=== PATIENT | female | born 1990 | race Caucasian/White ===

== ENCOUNTER 2021-08-13 09:34 | Emergency (ER) | payer SELFPAY ==
--- NOTE | ~2021-08-13 | CT_ITS ---
EXAMINATION: CT abdomen pelvis w con DATE: 08/13/2021 11:09 INDICATION: Nausea, vomiting TECHNIQUE: Computed tomography (CT) of the abdomen and pelvis was performed with 100 cc Omnipaque 350 intravenous contrast. The dose-length product was 272.60 mGy-cm. Automated exposure control and iter ative reconstruction technique were employed. COMPARISON: None. FINDINGS: Lung bases unremarkable. Heart size normal. No significant pleural or pericardial effusion. The liver, spleen, pancreas, adrenal glands and kidneys are unremarkable. Gallbladder is present. Non obstructive bowel gas pattern. There is free fluid in the pelvis. There is an involuting corpus lutea l cyst in the right adnexa, likely ruptured. There is a left adnexal cyst, likely ovarian. The append ix appears unremarkable. IMPRESSION: 1. Probable involuting corpus luteal cyst of the right ovary with moderate free fluid in the pelvis. 2.4 cm left ovarian cyst. Reviewed, dictated and finalized at location A.
[2021-08-13 09:37] VITALS: BP 105/66; PULSE 76; RESP 18; TEMP 36.6; O2SAT 100
[2021-08-13 09:55] LABS: Basophils Percent Auto 0.6 % (0.2-1.2); Eosinophils Percent Auto 0.3 % (0-4.4); Hematocrit 35.7 % (37.0-47.0); Hemoglobin 11.1 g/dL (12.0-15.0); Immature Granulocyte Absolute 0.01 K/mm3 (0.00-0.031); Immature Granulocyte Percent A 0.3 % (0-0.5); Lymphocytes Absolute Auto 0.46 K/mm3 (0.9-3.2); Lymphocytes Percent Auto 13.7 % (18.3-44.2); Mean Corpuscular HGB Conc 31.1 g/dl (32-36); Mean Corpuscular Hemoglobin 26.8 pg (26-34); Mean Corpuscular Volume 86.2 fl (80-100); Mean Platelet Volume 10.9 fl (7.4-10.4); Monocytes Absolute Auto 0.3 K/mm3 (0.1-0.6); Monocytes Percent Auto 9.3 % (2.6-8.5); Neutrophils Absolute Auto 2.5 K/mm3 (1.3-6.7); Neutrophils Percent Auto 75.8 % (45.5-73.1); Platelet Count Result 176 k/mm3 (150-375); Red Blood Count 4.14 M/mm3 (4.2-5.4); Red Cell Distribution Width 13.8 % (11.5-14.5); White Blood Count 3.4 K/mm3 (4.5-10.0)
[2021-08-13 10:05] LABS: Alanine Aminotransferase 15 U/L (4-35); Albumin Level 4.4 g/dL (3.5-5.1); Alkaline Phosphatase 33 U/L (38-126); Anion Gap 7 mmol/L (8-16); Aspartate Amino Transferase 28 U/L (14-36); Bilirubin,Total 0.5 mg/dL (0.2-1.3); Blood Urea Nitrogen 10 mg/dL (7-17); Calcium 8.3 mg/dL (8.4-10.2); Carbon Dioxide 26 mmol/L (22-30); Chloride 105 mmol/L (98-107); Estimated CRCL calculation 106 ml/min; Estimated Glomerular Filt Rate > 60; Glucose 117 mg/dL (65-110); Lipase 113 U/L (23-300); Potassium 3.9 mmol/L (3.4-5.0); Sodium 138 mmol/L (137-145)
[2021-08-13] MEDS: SODIUM CHLORIDE 0.9% IV 1,000 ML 999 ML IV CONT (10:33)
[2021-08-13] MEDS: ONDANSETRON INJ 4 MG/2 ML VIAL IV PUSH (10:33)
--- NOTE | 2021-08-13 10:47 | ED.GENADULT ---
HPI - General Adult General Chief complaint: Nausea/Vomiting/Diarrhea Stated complaint: nausea Time Seen by Provider: 08/13/21 09:39 History of Present Illness HPI narrative: 31 y/o female who presented to the ER w/ c/o N/V/D since yesterday. Patient states the had one episode of vomiting yesterday and then felt lightheaded and dizziness and felt like she had LOC for a minute. Patient states she was at work and continued to work. Patient states that she then had an episode of diarrhea. Patient states she was not able to eat anything yesterday 2/2 being nauseated. Patient states today she has vomited 2 times, but has had no lightheaded or dizziness. Patient states that both times she vomited she would make herself eat a banana. Patient denies any recent travel or new foods. Patient denies any fever. Patient states she was had chills after vomiting yesterday. Patient states she did have a headache yesterday and did take 1 ibuprofen. Related Data Allergies Allergy/AdvReac Type Severity Reaction Status Date / Time No Known Allergies Allergy Verified 08/13/21 09:41 Review of Systems Review of Systems: All systems reviewed & are unremarkable except as noted in HPI and below (HPI) [facility] Family History Family History (Updated 06/11/17 @ 13:27 by DOCTOR UNKNOWN) Father Hypertension Social History Social History Smoking status: Never smoker Alcohol intake: current Exam Const: General: no acute distress Orientation/consciousness: patient oriented x3 HENMT: Head: normal to inspection Neck: Neck: normal visual inspection Resp: Effort & Inspection: normal respiratory effort Auscultation: clear to auscultation bilaterally Cardio: Rate: regular rate Rhythm: regular rhythm GI: GI Palp: Yes Soft to palpation Auscultation: normal bowel sounds Other: Denies any tenderness to palpation Skin: General skin exam: normal color Neuro: General: patient oriented x3 Extrem: General: normal to inspection Course Course Emergency Course: Patient has had no N/V/D throughout ER visit. Patient states she feels well after receiving IVF. Discussed CT of Abd/Pelvis results with patient and that it appears she had a right ovarian cyst rupture. Did discuss that she would definitely benefit from f/u w/ [employer] . Pt v/u. Did discuss that N/V/D is most likely viral since she is tolerating fluids at this time. Pt v/u Vital Signs Vital signs: Vital Signs Temperature 36.6 C 08/13/21 09:37 Pulse Rate 76 08/13/21 09:37 Respiratory Rate 18 08/13/21 09:37 Blood Pressure 105/66 08/13/21 09:37 Pulse Oximetry 100 08/13/21 09:37 Temperature 36.6 C 08/13/21 09:37 Pulse Rate 72 08/13/21 12:08 Respiratory Rate 18 08/13/21 12:08 Blood Pressure 110/72 08/13/21 12:08 Pulse Oximetry 99 08/13/21 12:08 Medical Decision Making MDM Narrative Medical decision making narrative: Patient has done well during ER visit. Patient has had no N/V/D. CT abd/pelvis shows: FINDINGS: Lung bases unremarkable. Heart size normal. No significant pleural or pericardial effusion. The liver, spleen, pancreas, adrenal glands and kidneys are unremarkable. Gallbladder is present. Nonobstructive bowel gas pattern. There is free fluid in the pelvis. There is an involuting corpus luteal cyst in the right adnexa, likely ruptured. There is a left adnexal cyst, likely ovarian. The appendix appears unremarkable. IMPRESSION: 1. Probable involuting corpus luteal cyst of the right ovary with moderate free fluid in the pelvis. 2.4 cm left ovarian cyst. Reviewed, dictated and finalized at location A. etiology of N/V/D is most likely gastroenteritis Differential Diagnosis Differential Diagnosis: Gastroenteritis, , PUD, Cholelithiasis Vital Signs Vital Signs: Vital Signs Temperature 36.6 C 08/13/21 09:37 Pulse Rate 7
[2021-08-13 10:54] LABS: Add Urine Microscopic? YES; Appearance Urine Cloudy (Clear); Bacteria Urine Trace /hpf; Bilirubin Urine Negative (Negative); Color Urine Yellow (Yellow); Glucose Urine UA Negative (Negative); Ketones Urine Negative (Negative); Leukocyte Esterase Ur 1+ LEU/UL (Negative); Mucus Urine Few /lpf; Nitrate Urine Negative (Negative); Protein Urine Negative (Negative); Specific Grav Ur 1.024 (1.001-1.035); Squamous Epithelial Cell Urine Many /hpf (Few); Urobilinogen Urine Negative mg/dL (<2.0)
[2021-08-13 10:56] LABS: Blood Urine Negative (Negative)
[2021-08-13 12:08] VITALS: BP 110/72; PULSE 72; RESP 18; O2SAT 99
== END 2021-08-13 12:09 | disposition home or self-care (01) ==
PROVIDERS: Emergency Provider Nurse Practitioner Adult Health
DX: K52.9 Noninfective gastroenteritis and colitis, unspecified (principal)
CPT/HCPCS: 36415; 74177; 80053; 81001; 81025; 83690; 85025; 87086; 96361; 96374; 99284; J2405; J7030; Q9967